=== PATIENT | female | born 1975 | race Caucasian/White ===

== ENCOUNTER 2016-06-17 20:30 | Emergency (ER) | payer MEDICAID ==
[~2016-06-17 20:30] MED LIST: ADVIL 200MG TA200 MG PO; NAPROSYN500 M1 PO; NORCO 325 MG-51 TAB PO
[2016-06-17] MEDS ORDERED: NORCO 325 MG-51 TA1 PO (20:39)
== END 2016-06-17 20:59 | disposition home or self-care (01) ==
LOC: ED 20:30
DX: S02.5XXA Fracture of tooth (traumatic), initial encounter for closed fracture (principal); Y99.8 Other external cause status

== ENCOUNTER 2016-09-05 16:47 | Emergency (ER) | payer MEDICAID ==
[~2016-09-05 16:47] MED LIST changes: +NORCO 325 MG-51 TA1 PO
[2016-09-05 17:38] VITALS: BP 138/76
== END 2016-09-05 17:35 | disposition home or self-care (01) ==
LOC: ED 16:47
DX: S80.01XA Contusion of right knee, initial encounter (principal); W18.09XA Striking against other object with subsequent fall, initial encounter; Y92.008 Other place in unspecified non-institutional (private) residence as the place of occurrence of the external cause